=== PATIENT | female | born 1995 | race Caucasian/White ===

== ENCOUNTER → 2021-01-02 16:00 | Outpatient (CLI) | payer OTHER, SELFPAY ==
[2021-01-07 14:08] LABS: HPV Reflexed? NOT INDICATED
== END ==
PROVIDERS: Visit Provider Obstetrics & Gynecology
DX: Z12.4 Encounter for screening for malignant neoplasm of cervix (principal)
CPT/HCPCS: 88175; G0145

== ENCOUNTER 2021-07-13 13:59 | Outpatient (CLI) | payer OTHER, SELFPAY ==
[2021-07-13 14:24] LABS: Hematocrit 39.2 % (37-47); Hemoglobin 13.4 g/dL (12.0-15.0); Mean Corp Hgb Conc 34.2 g/dL (32-36); Mean Corpuscular Hgb 29.3 pg (27.0-32.0); Mean Corpuscular Volume 85.6 fL (81-99); Mean Platelet Vol. 8.7 fl (6.2-12.0); Platelet Count 318 K/mm3 (150-450); RBC Distribution Width CV 11.4 % (11.6-14.6); RBC Distribution Width SD 35.4 fl (35.1-43.9); Red Blood Count 4.58 M/mm3 (4.2-5.4); White Blood Count 10.6 K/mm3 (4.4-11.0)
[2021-07-13 14:44] LABS: Estradiol 21.3 pg/mL; Follicle Stimulating Hormone 1.3 mIU/mL; Luteinizing Hormone 0.7 mIU/mL; T4 Free Direct 1.27 ng/dL (0.76-1.46); Thyroid Stim Hormone (TSH) 0.72 uIU/mL (0.358-3.74)
== END 2021-07-13 23:59 | disposition home or self-care (01) ==
PROVIDERS: Visit Provider Obstetrics & Gynecology
DX: N93.9 Abnormal uterine and vaginal bleeding, unspecified (principal)
CPT/HCPCS: 36415; 82670; 83001; 83002; 84439; 84443; 85027

== ENCOUNTER 2021-07-28 11:03 | Emergency (ER) | payer OTHER, SELFPAY ==
[2021-07-28 11:03] VITALS: BP 134/93; PULSE 107; RESP 18; TEMP 36.5; O2SAT 98; BMI 24.7
--- NOTE | 2021-07-28 11:18 | EDS_ITS ---
HPI History of Present Illness Chief Complaint: Shortness of Breath Narrative Narrative: Patient with past medical history of ADHD, skin problems, presents with shortness of breath that began today. She states she feels chest tightness and has had cough. Of note, approximately 7 days ago, she tested positive for COVID-19. Her symptoms at that time were runny nose, which caused her epistaxis. She denies any fevers or chills. Today, she developed a cough and shortness of breath. She denies any leg swelling. No other symptoms. She does vape. PFSH PFSH Home Medications albuterol sulfate [Ventolin HFA] 1 - 2 puff INHALATION Q4H PRN PRN #1 ea 07/28/21 [Rx Last Taken Unknown] atomoxetine PO 07/28/21 [History Last Taken Unknown] norethindrone-e.estradiol-iron [Tilia Fe] tab 07/28/21 [History Last Taken Unknown] sertraline mg 07/28/21 [History Last Taken Unknown] spironolactone 07/28/21 [History Last Taken Unknown] spironolactone 07/28/21 [History Last Taken Unknown] Allergy/AdvReac Type Severity Reaction Status Date / Time No Known Allergies Allergy Verified 07/28/21 11:06 Social History Smoking Status: Unknown if ever smoked ROS ROS ED ROS Narrative Constitutional: No fever, no chills. HEENT: No sore throat. No neck pain. No loss of vision. No rhinorrhea. Cardiovascular: No chest pain. Mild chest tightness. No pleuritic chest pain. No palpitations. No pedal edema. Respiratory: Positive cough, positive shortness of breath. Abdominal: No abdominal pain. No nausea. No vomiting. Genitourinary: No dysuria. No hematuria. Musculoskeletal: No myalgias. No arthralgias. Neurologic: No headaches. No dizziness. No lightheadedness. Skin: No rash. No change in color. Psychiatric: No depression. No anxiety. EXAM Physical Exam Narrative Exam Narrative: Afebrile. Vital signs noted. HEENT: Normocephalic. Atraumatic. PERRL, EOMI. Neck soft and supple. No point tenderness or step off. Cardiovascular: Regular rate and rhythm with intermittent tachycardia. No murmurs, rubs, or gallops appreciated. Respiratory: No tachypnea. Lungs clear to auscultation bilaterally. Gastrointestinal: Abdomen soft, nontender, with normoactive bowel sounds. No rebound or guarding. Neurological: Awake. Alert. Nonfocal, nonlateralizing. Skin: No rash. Normal color. No pallor. Musculoskeletal: No pedal edema. Full range of motion extremities. Const Vital Signs: 07/28/21 11:03 07/28/21 11:13 Temperature 97.7 F L Temperature Source Temporal Pulse Rate 107 H Respiratory Rate 18 Respiratory Effort Normal Non-Labored Respiratory Depth Normal Respiratory Pattern Normal Blood Pressure 134/93 H Blood Pressure Mean 106 Pulse Ox 98 Oxygen Delivery Method Room Air Room Air MDM MDM MDM Narrative Medical decision making narrative: Patient is in day 7 of her COVID-19. She did not develop the cough or shortness of breath until today. Smoking cessation was discussed. Chest x-ray as interpreted by myself shows no evidence of pneumonia, no pneumothorax. She received 2 puffs from an albuterol MDI and the remainder dispensed to her. I will write her prescription for another inhaler. Treatment be symptomatic. I do not feel that any other further work-up is indicated. She is not hypoxic and does not require oxygen. She will self isolate at home. Disposition is discharged home in stable condition. Return instructions were reviewed. Radiography Diagnostic Testing: Clinical Impression(s) from Imaging Studies Chest X-Ray 07/28/21 11:25 IMPRESSION: Nonacute portable x-ray examination of the chest. Electronically Signed: Arsenio De MD ([place]) at 11:50 EDT Reading Location ID and State: [address] [place] [address] , Service support , Discharge Plan Triage Chief Complaint: Shortness of Breath ED Provider: Matt Díaz Dx/Rx/DC Orders Clinical Impression: COVID-19, Bronchitis, Feeling of chest tightness Instructions: Coronavirus Disease 2019 (COVID-19): Caring for Yourself or Others, ED Bronchitis, No Antibiotic (Adult) Prescriptions: New albuterol sulfate [Ventolin HFA] 90 mcg/actuation HFA aerosol inhaler 1 - 2 puff inhalation Q4H PRN PRN (Reason: Wheezing) Qty: 1 RF: 0 No Action Tilia Fe 1-20(5)/1-30(7) /1mg-35mcg (9) tablet RF: 0 sertraline 25 mg tablet RF: 0 spironolactone 50 mg tablet RF: 0 spironolactone 50 mg tablet RF: 0 atomoxetine 60 mg capsule PO RF: 0 Primary Care Provider: Peyton Nj Referrals: Peyton Nj, PA-C [Primary Care Provider] - 1 Week if not improving Disposition Disposition: Home, Self Care
--- NOTE | 2021-07-28 11:25 | RAD_ITS ---
STUDY: X-RAY CHEST REASON FOR EXAM: Female, 26 years old. Shortness of Breath TECHNIQUE: AP COMPARISON: None. FINDINGS: The lungs are clear and expanded. There is no demonstrated pleural abnormality. Normal size heart. Normal mediastinum and canelo. Normal visualized pulmonary arteries. Normal visualized aortic arch and descending thoracic aorta. Normal visualized thoracic spine. Normal visualized ribs, clavicles, and shoulders. There is no demonstrated abnormality of the visualized soft tissue structures of the upper abdomen. RAD/Chest 1 View (Portable) IMPRESSION: Nonacute portable x-ray examination of the chest. Electronically Signed: Arsenio De MD ([place]) at 11:50 EDT ,
== END 2021-07-28 12:28 | disposition home or self-care (01) ==
LOC: ED 12:16
PROVIDERS: Emergency Provider Emergency Medicine; PCP Family Medicine; Visit Provider Emergency Medicine
DX: U07.1 COVID-19 (principal); R07.89 Other chest pain; J40 Bronchitis, not specified as acute or chronic; F90.9 Attention-deficit hyperactivity disorder, unspecified type; Z79.899 Other long term (current) drug therapy
CPT/HCPCS: 71045; 99282